=== PATIENT | male | born 1995 | race Caucasian/White ===

== ENCOUNTER 2021-09-28 21:44 | Emergency (ER) | payer SELFPAY ==
[~2021-09-28] VITALS: Ht 167.6 cm; Wt 110.0 kg
[2021-09-28 21:45] VITALS: BP 128/74
--- NOTE | 2021-09-28 22:41 | NUR ---
Pt leslie. i/o cath well. Female witness assisted. Ana CASTROA.
[2021-09-28 22:47] LABS: CLARITY,URINE CLEAR (Clear); COLOR,URINE YELLOW (Yellow); GLUCOSE, URINE NEGATIVE (Neg); KETONES,URINE NEGATIVE (Neg); LEUKOCYTE ESTERASE ,URINE NEGATIVE (Neg); NITRITES, URINE NEGATIVE (Neg); OCCULT BLOOD,URINE TRACE-INTACT (Neg); PROTEIN,URINE 100 mg/dl (Neg); UROBILINOGEN,URINE 0.2 E.U/dL (0.2-1.0)
[2021-09-28 22:50] LABS: UA COLLECTION TYPE STRAIGHT CATH
[2021-09-28 22:52] LABS: BACTERIA,URINE NONE SEEN /HPF (Neg); RBC,URINE 0-2 /HPF (0-2); SQUAMOUS EPITHELIAL CELL,UR FEW /LPF (FEW); WBC,URINE NONE SEEN /HPF (0-4)
--- NOTE | 2021-09-28 23:11 | NUR ---
ERP to bedside to speak with pt. Pt pink, alert, no acute/resp distress.
[2021-10-04] MEDS ORDERED: CETI10TA14 PO (15:49)
[2021-10-04] MEDS ORDERED: ERGO500054 PO (15:50)
[2021-10-04] MEDS ORDERED: FURO20TA4 PO (15:50)
[2021-10-04] MEDS ORDERED: TEST200V33 IM (15:50)
[2021-10-04] MEDS ORDERED: LOSA50TA64 PO (15:50)
== END 2021-09-28 23:36 | disposition home or self-care (01) ==
LOC: ER 21:45
DX: N18.9 Chronic kidney disease, unspecified (principal); J02.9 Acute pharyngitis, unspecified; R05.9 Cough, unspecified; R09.81 Nasal congestion; R00.0 Tachycardia, unspecified; Z88.8 Allergy status to other drugs, medicaments and biological substances; Z98.890 Other specified postprocedural states
CPT/HCPCS: 81001; 99283

== ENCOUNTER 2021-10-09 07:10 | Day surgery (SDC) | payer MEDICAID ==
[2021-10-09] VITALS (10 sets, daily range): BP systolic 124–137; BP diastolic 71–84
[~2021-10-09] VITALS: Ht 167.6 cm; Wt 105.2 kg
[~2021-10-09 07:10] MED LIST: CETI10TA14 PO; ERGO500054 PO; FURO20TA4 PO; LOSA50TA64 PO; TEST200V33 IM; cefazolin/dext.iso 2gm/50ml IV ONE; famotidine 20mg tablet PO ONE; ringers solution, lacted 1,000 ML IV SCH; scopolamine 1mg/72 hr patch TD PRN
[2021-10-09 09:44] LABS: MONOCYTES # (AUTO) 0.5 X10'3 (0-0.9); NEUTROPHILS # (AUTO) 1.7 X10'3 (1.8-7.7); PRE OP HEMOGLOBIN 11.2 g/dL (14.0-17.9)
[2021-10-09 09:46] LABS: BASOPHILS # (AUTO) 0.1 X10'3 (0-0.2); BASOPHILS % (AUTO) 1.1 % (0-1); EOSINOPHILS # (AUTO) 0.4 X10'3 (0-0.9); EOSINOPHILS % (AUTO) 7.3 % (0-6); LYMPHOCYTES # (AUTO) 2.4 X10'3 (1.1-4.8); LYMPHOCYTES % (AUTO) 47.3 % (21-51); MEAN CORPUSCULAR HEMOGLOBIN 28.6 PG (27.0-31.0); MEAN CORPUSCULAR HGB CONC 32.7 g/dL (33.0-36.5); MEAN CORPUSCULAR VOLUME 87.4 FL (78-98); MEAN PLATELET VOLUME 9.4 FL (7.4-10.4); MONOCYTES % (AUTO) 9.6 % (2-12); NEUTROPHILS % (AUTO) 34.7 % (42-75); PRE OP HEMATOCRIT 34.2 % (42.0-52.0); PRE OP PLATELET COUNT 247 X10'3 (140-440); RED BLOOD COUNT 3.91 X10'6 (4.70-6.10); RED CELL DISTRIBUTION WIDTH 14.8 % (11.5-14.5)
--- NOTE | 2021-10-09 10:30 | NUR ---
BELONGINGS KEPT WITH
[2021-10-09 10:36] LABS: ALBUMIN 3.3 G/DL (3.4-5.0); ALBUMIN/GLOBULIN RATIO 0.9 (1.1-1.5); ALKALINE PHOSPHATASE 107 IU/L (46-116); BLOOD UREA NITROGEN 69 MG/DL (7-18); BUN/CREATININE RATIO 8.3 (5.4-32.0); CALCIUM 8.5 MG/DL (8.5-10.1); PRE OP ALT 21 U/L (30-65); PRE OP AST 15 U/L (10-37); PRE OP BILIRUB, TOTAL 0.3 MG/DL (0.0-1.0); PRE OP GLUCOSE 82 MG/DL (70-104); eGFR 8 ML/MIN
[2021-10-09 11:04] LABS: CHLORIDE 106 MMOL/L (99-107); PRE OP SODIUM 139 MMOL/L (135-145)
[2021-10-09] MEDS ORDERED: heparin sodium, porcine/PF 100unit/ml 5ML syringe ONE (11:04)
[2021-10-09] MEDS ORDERED: mupirocin 2% ointment 22GM ONE (11:05)
[2021-10-09] MEDS ORDERED: BUPIVAcaine 0.5% inj/PF 30 ML ONE (11:05)
[2021-10-09] MEDS ORDERED: fentaNYL/PF 50MCG/1 ML 2ML syringe ONE (11:23)
[2021-10-09] MEDS ORDERED: midazolam 1 mg/ML 2ml injection ONE (11:23)
[2021-10-09 11:30] LABS: PRE OP ANION GAP 17 (8-16)
[2021-10-09] MEDS ORDERED: morphine 2 MG/ML inj. syringe IV PRN (12:00)
[2021-10-09] MEDS ORDERED: meperidine/PF 25mg/ml syringe IV PRN ×3 (12:00)
[2021-10-09] MEDS ORDERED: morphine 4 MG/ML inj SYRINge IV PRN (12:00)
[2021-10-09] MEDS ORDERED: ringers solution, lacted 1,000 ML IV SCH (12:00)
[2021-10-09] MEDS ORDERED: proCHLORperazine 10 MG/2 ml inj IV PRN (12:00)
[2021-10-09] MEDS ORDERED: ondansetron/PF 4mg/2ml inj IV PRN (12:00)
[2021-10-09] MEDS ORDERED: rocuronium 10mg/ml inj IV ONE (12:04)
[2021-10-09] MEDS ORDERED: dexamethasone sod phosphate 4mg/ml inj. ONE (12:04)
[2021-10-09] MEDS ORDERED: propofol inj 20 ML IV ONE (12:04)
[2021-10-09] MEDS ORDERED: ondansetron/PF 4mg/2ml inj ONE (12:05)
[2021-10-09] MEDS ORDERED: BUPIVAcaine 0.5% inj/PF 30 ml vial IJ ONE (12:09)
[2021-10-09] MEDS ORDERED: sugammadex 200mg/2ml injection IV ONE (12:10)
--- NOTE | 2021-10-09 12:29 | NUR ---
Received from OR via [facility], accompanied by Anesthesiologist MOHSEN and report given by Anesthesiolgist. PT WITH 10L MASK 100% 02 SAT, 20 GAUGE RUE NS 10ML/HR KVO. PD TUBE COILED UNDER DRESSING TO ABDOMEN. 3 LAP SITES PRESENT ALL CDI. PT DENIES PAIN. VSS. Addendum: 10/09/21 at 1243 by Giovanny Alvarado RN, RN Amended: Links added.
[2021-10-09] MEDS ORDERED: HYDROcodone/acetaminophen 10/325mg tab PO ONE (13:30)
--- NOTE | 2021-10-09 13:59 | NUR ---
Report called to receiving nurse. Transferred via WHEELCHAIR WITH ALL Belongings . Special Issues communicated to receiving nurse - PRESENT TO HEAR DC INSTRUCTIONS. OUT VIA TRANSPRT VEHICLE BACK TO [place].ALL QUESTIONS ANSWERED AND MEDICATED PRIOR TO DC. IV OUT WITHOUT COMPLICATIONS. Addendum: 10/09/21 at 1418 by Giovanny Alvarado RN, RN Amended: Links added.
== END 2021-10-09 13:59 | disposition home or self-care (01) ==
LOC: PAS 07:10
PROVIDERS: ATTEND Surgery
DX: I12.0 Hypertensive chronic kidney disease with stage 5 chronic kidney disease or end stage renal disease (principal); N18.6 End stage renal disease; N25.81 Secondary hyperparathyroidism of renal origin; F41.9 Anxiety disorder, unspecified; G62.9 Polyneuropathy, unspecified; Z90.5 Acquired absence of kidney; Z98.890 Other specified postprocedural states; Z91.040 Latex allergy status; Z91.09 Other allergy status, other than to drugs and biological substances; Z79.899 Other long term (current) drug therapy
CPT/HCPCS: 36415; 49324; 80053; 82948; 85025; 93005; C1750; C1758; J1100; J1642; J2250; J2270; J2405; J2704; J3010; J3490; J7120; S0020; Z7506; Z7508; Z7512; A4215; A4618; A6258; A6402; A6449; A7000

== ENCOUNTER 2021-12-04 09:08 | Day surgery (SDC) | payer MEDICAID ==
[~2021-12-04] VITALS: Ht 167.6 cm; Wt 102.5 kg
[2021-12-04] VITALS (17 sets, daily range): BP systolic 112–138; BP diastolic 67–95
[~2021-12-04 09:08] MED LIST changes: -cefazolin/dext.iso 2gm/50ml IV ONE; -scopolamine 1mg/72 hr patch TD PRN
[2021-12-04 10:10] LABS: BASOPHILS # (AUTO) 0.1 X10'3 (0-0.2); BASOPHILS % (AUTO) 1.1 % (0-1); EOSINOPHILS # (AUTO) 0.3 X10'3 (0-0.9); EOSINOPHILS % (AUTO) 4.3 % (0-6); LYMPHOCYTES # (AUTO) 1.8 X10'3 (1.1-4.8); LYMPHOCYTES % (AUTO) 26.2 % (21-51); MEAN CORPUSCULAR HEMOGLOBIN 29.6 PG (27.0-31.0); MEAN CORPUSCULAR HGB CONC 32.9 g/dL (33.0-36.5); MEAN CORPUSCULAR VOLUME 89.8 FL (78-98); MEAN PLATELET VOLUME 9.5 FL (7.4-10.4); MONOCYTES # (AUTO) 0.5 X10'3 (0-0.9); NEUTROPHILS # (AUTO) 4.2 X10'3 (1.8-7.7); NEUTROPHILS % (AUTO) 61.4 % (42-75); PRE OP HEMATOCRIT 34.9 % (42.0-52.0); PRE OP HEMOGLOBIN 11.5 g/dL (14.0-17.9); PRE OP PLATELET COUNT 278 X10'3 (140-440); RED BLOOD COUNT 3.88 X10'6 (4.70-6.10); RED CELL DISTRIBUTION WIDTH 14.1 % (11.5-14.5)
[2021-12-04] MEDS ORDERED: ceFAZolin inj. 2,000 MG in dextrose 5%-water 100 ML IV ONE (10:15)
[2021-12-04] MEDS ORDERED: BUPIVAcaine 0.5% inj/PF 30 ML ONE (10:34)
[2021-12-04] MEDS ORDERED: mupirocin 2% ointment 22GM ONE (10:34)
[2021-12-04] MEDS ORDERED: scopolamine 1mg/72 hr patch TD ONE (10:42)
[2021-12-04] MEDS ORDERED: sevoflurane 250ml liquid IH ONE (10:50)
[2021-12-04] MEDS ORDERED: fentaNYL/PF 50MCG/1 ML 2ML syringe ONE ×2 (10:52→11:10)
[2021-12-04] MEDS ORDERED: rocuronium 10mg/ml inj IV ONE (11:00)
[2021-12-04] MEDS ORDERED: propofol inj 20 ML IV ONE (11:00)
[2021-12-04] MEDS ORDERED: midazolam 1 mg/ML 2ml injection ONE (11:00)
[2021-12-04] MEDS ORDERED: LIDOcaine 1%/PF 5ML 10 MG/ML VIAL ONE (11:00)
[2021-12-04 11:05] LABS: ALBUMIN 3.6 G/DL (3.4-5.0); ALBUMIN/GLOBULIN RATIO 1.1 (1.1-1.5); ALKALINE PHOSPHATASE 122 IU/L (46-116); BLOOD UREA NITROGEN 40 MG/DL (7-18); BUN/CREATININE RATIO 5.4 (5.4-32.0); CALCIUM 8.7 MG/DL (8.5-10.1); CHLORIDE 106 MMOL/L (99-107); CREATININE 7.47 MG/DL (0.60-1.10); PRE OP ALT 28 U/L (30-65); PRE OP ANION GAP 13 (8-16); PRE OP AST 14 U/L (10-37); PRE OP BILIRUB, TOTAL 0.3 MG/DL (0.0-1.0); PRE OP GLUCOSE 88 MG/DL (70-104); PRE OP POTASSIUM 4.8 MMOL/L (3.4-5.1); PRE OP SODIUM 139 MMOL/L (135-145); TOTAL CARBON DIOXIDE 19.9 MMOL/L (24-32); TOTAL PROTEIN 6.9 G/DL (6.4-8.2); eGFR 9 ML/MIN
[2021-12-04] MEDS ORDERED: HYDROmorphone/PF 0.2 MG/ML SYRINGE IV PRN ×2 (11:05)
[2021-12-04] MEDS ORDERED: ringers solution, lacted 1,000 ML IV SCH (11:05)
[2021-12-04] MEDS ORDERED: morphine 2 MG/ML inj. syringe IV PRN (11:05)
[2021-12-04] MEDS ORDERED: ondansetron/PF 4mg/2ml inj IV PRN (11:05)
[2021-12-04] MEDS ORDERED: dexamethasone sod phosphate 4mg/ml inj. ONE (11:26)
[2021-12-04] MEDS ORDERED: neostigmine methylsulfate 1 MG/ML 10ml vial ONE (11:26)
[2021-12-04] MEDS ORDERED: glycopyrrolate 0.2mg/ml inj ONE (11:26)
[2021-12-04] MEDS ORDERED: ondansetron/PF 4mg/2ml inj ONE (11:26)
[2021-12-04] MEDS ORDERED: sugammadex 200mg/2ml injection IV ONE (11:45)
--- NOTE | 2021-12-04 11:50 | NUR ---
Received from OR via [facility], accompanied by Anesthesiologist DR MAN and report given by Anesthesiologist AND [employer] PI DEVELOPER. PT VERY DROWSY, NO S/S OF DISTRESS/DISCOMFORT. ABDOMEN W/2 LAP SITES W/BANDAIDS CDI, PERITONEAL CATHETER IN PLACE W/RAGHU BARTLETT COVERING CDI. Addendum: 12/04/21 at 1217 by Laurie Lopez RN Amended: Links added.
[2021-12-04] MEDS ORDERED: BUPIVAcaine 0.5% inj/PF 30 ml vial IJ ONE (12:24)
[2021-12-04] MEDS ORDERED: HYDROcodone/acetaminophen 10/325mg tab PO ONE (13:15)
[2021-12-04] MEDS ORDERED: HYDROcodone/acetaminophen 5mg/325mg tablet PO ONE (14:10)
--- NOTE | 2021-12-04 14:30 | NUR ---
PT GIVEN PAIN PILL FOR RIDE HOME, PT ABLE TO AMBULATE SAFELY. D/C INSTRUCTIONS GIVEN AND GONE OVER W/PT WHO VERBALIZED UNDERSTANDING. PT D/CD TO MEDI-CAR VIA W/C TO HOME W/O INCIDENT. Addendum: 12/04/21 at 1454 by Laurie Lopez RN Amended: Links added.
== END 2021-12-04 14:30 | disposition home or self-care (01) ==
LOC: PAS 09:08
PROVIDERS: ATTEND Surgery
DX: T85.611A Breakdown (mechanical) of intraperitoneal dialysis catheter, initial encounter (principal); I13.0 Hypertensive heart and chronic kidney disease with heart failure and stage 1 through stage 4 chronic kidney disease, or unspecified chronic kidney disease; N18.6 End stage renal disease; G43.909 Migraine, unspecified, not intractable, without status migrainosus; F41.9 Anxiety disorder, unspecified; E66.9 Obesity, unspecified; Z68.36 Body mass index [BMI] 36.0-36.9, adult; N25.81 Secondary hyperparathyroidism of renal origin; Z87.442 Personal history of urinary calculi; Z90.5 Acquired absence of kidney; Z98.890 Other specified postprocedural states; Z91.040 Latex allergy status; Z88.0 Allergy status to penicillin; Z88.8 Allergy status to other drugs, medicaments and biological substances; Z82.3 Family history of stroke; Z80.1 Family history of malignant neoplasm of trachea, bronchus and lung; Y83.8 Other surgical procedures as the cause of abnormal reaction of the patient, or of later complication, without mention of misadventure at the time of the procedure; Y92.89 Other specified places as the place of occurrence of the external cause
CPT/HCPCS: 36415; 49325; 49326; 80053; 85025; J0690; J1100; J2250; J2270; J2405; J2704; J2710; J3010; J3490; J7030; J7040; J7060; J7120; S0020; Z7506; Z7512; A4215; A4618; A7000

== ENCOUNTER 2022-09-17 17:39 | Emergency (ER) | payer MEDICARE, MEDICAID ==
[~2022-09-17] VITALS: Ht 167.6 cm; Wt 100.2 kg
[~2022-09-17 17:39] MED LIST changes: -famotidine 20mg tablet PO ONE; -ringers solution, lacted 1,000 ML IV SCH
[2022-09-17 17:58] LABS: BASOPHILS # (AUTO) 0.1 X10'3 (0-0.2); BASOPHILS % (AUTO) 1.2 % (0-1); EOSINOPHILS # (AUTO) 0.5 X10'3 (0-0.9); EOSINOPHILS % (AUTO) 6.7 % (0-6); HEMATOCRIT 36.9 % (42.0-52.0); HEMOGLOBIN 12.2 g/dl (14.0-17.9); LYMPHOCYTES # (AUTO) 2.5 X10'3 (1.1-4.8); LYMPHOCYTES % (AUTO) 30.2 % (21-51); MEAN CORPUSCULAR HEMOGLOBIN 30.5 PG (27.0-31.0); MEAN CORPUSCULAR VOLUME 92.5 FL (78-98); MEAN PLATELET VOLUME 9.1 FL (7.4-10.4); MONOCYTES # (AUTO) 0.7 X10'3 (0-0.9); MONOCYTES % (AUTO) 8.3 % (2-12); NEUTROPHILS # (AUTO) 4.4 X10'3 (1.8-7.7); NEUTROPHILS % (AUTO) 53.6 % (42-75); PLATELET COUNT 244 X10'3 (140-440); RED BLOOD COUNT 3.99 X10'6 (4.70-6.10); RED CELL DISTRIBUTION WIDTH 14.1 % (11.5-14.5); WHITE BLOOD COUNT 8.2 X10'3 (4.5-11.0)
[2022-09-17 18:14] LABS: ALANINE AMINOTRANSFERASE 50 U/L (12-78); ALBUMIN 3.2 G/DL (3.4-5.0); ALKALINE PHOSPHATASE 182 IU/L (46-116); ANION GAP 12 (8-16); ASPARTATE AMINO TRANSFERASE 27 U/L (10-37); BILIRUBIN,TOTAL 0.3 MG/DL (0.1-1.0); BLOOD UREA NITROGEN 44 MG/DL (7-18); BUN/CREATININE RATIO 5.6 (10.0-20.0); CALCIUM 7.7 MG/DL (8.5-10.1); CHLORIDE 107 MMOL/L (99-107); CREATININE 7.84 MG/DL (0.60-1.10); GLUCOSE 105 MG/DL (70-104); POTASSIUM 4.2 MMOL/L (3.5-5.1); SODIUM 141 MMOL/L (135-145); TOTAL CARBON DIOXIDE 22.5 MMOL/L (24-32); TOTAL PROTEIN 6.4 G/DL (6.4-8.2); eGFR 9 ML/MIN
[2022-09-17 21:05] VITALS: BP 143/95
== END 2022-09-17 22:49 | disposition home or self-care (01) ==
LOC: ER 17:39
DX: R07.9 Chest pain, unspecified (principal); R06.02 Shortness of breath; Z87.448 Personal history of other diseases of urinary system; Z91.040 Latex allergy status; Z88.5 Allergy status to narcotic agent; Z79.899 Other long term (current) drug therapy; Z79.1 Long term (current) use of non-steroidal anti-inflammatories (NSAID); Z79.2 Long term (current) use of antibiotics
CPT/HCPCS: 36415; 71045; 80053; 83735; 83880; 84484; 85025; 93005; 99285